=== PATIENT | male | born 1955 | race Caucasian/White ===

== ENCOUNTER 2016-12-09 14:38 | Emergency (ER) | payer BC, OTHER ==
[2016-12-09 15:08] VITALS: BP 132/86
[2016-12-09] MEDS ORDERED: TETANUS/DIPHTHERIA/PERTUSSIS 0.5 ML SYRINGE IM ONE (16:56)
[2016-12-09] MEDS ORDERED: AMOX/CLAV 875 MG/125 MG TABLET PO STA (17:00)
--- NOTE | 2016-12-09 17:08 | ED Physician Documentation ---
History of Present Illness - Stated complaint Stated Complaint: CAT BITE R HAND - Chief complaint Chief Complaint: Wound - Additonal information Additional information: healthy 61 male last tdap 2000 bit by his healthy immunized cat yesterday on R dominent hand and now infected Review of Systems Skin: reports: Bite / sting Immunocompromised: denies: Immunocompromised PD PAST MEDICAL HISTORY - Past Medical History Past Medical History: No Cardiovascular: None Respiratory: None Neuro: None Endocrine/Autoimmune: None GI: Other : None HEENT: None Psych: None Musculoskeletal: None Derm: None Other Past Medical History: Abdi's esophagus - Past Surgical History Ortho: Other - Present Medications Home Medications: Ambulatory Orders Medication Instructions Recorded Confirmed Amox/Clav 875/125 [Augmentin] 1 each PO Q12H #20 tablet 12/09/16 Omeprazole [PriLOSEC] 0 mg DAILY 12/09/16 12/09/16 - Allergies Allergies/Adverse Reactions: Allergies Allergy/AdvReac Type Severity Reaction Status Date / Time No Known Drug Allergies Allergy Verified 12/09/16 14:54 - Social History Does the pt smoke?: No Smoking Status: Never smoker Does the pt drink ETOH?: No Does the pt have substance abuse?: No PD ED PE NORMAL - Vitals Vital signs reviewed: Yes - Extremities Extremities: Other (3 puncture wounds to dorsal radial aspect of R hand with local swelling prox to 2nd/3rd MC heads and strreaking to the AC region, small drop of pus at one pf puncture was cultured but no sig fluctuance to suggest abscess, abke to violet chambers s sig pain so doubt tenosynovitis, MSV intact) Results - Vitals Vitals: Vital Signs - 24 hr 12/09/16 14:49 Temperature 36.2 C L Heart Rate 79 Respiratory 16 Rate Blood Pressure 132/86 H O2 Saturation 98 Oxygen O2 Source Room air Departure - Departure Disposition: 01 Home, Self Care Clinical Impression: Infected cat bite Qualifiers: Encounter type: initial encounter Qualified Code(s): W55.01XA - Bitten by cat, initial encounter Condition: Good Instructions: ED Bite Cat Prescriptions: Amox/Clav 875/125 [Augmentin] 1 each PO Q12H #20 tablet Comments: Wash the hand and apply antibiotic ointment twice a day See you PMD or return to the ER and seem me tomorrow after 8 PM for a recheck ( unless completely better) - sometimes cat bites need IV antibiotics to clear the infection And please have your PMD recheck your blood pressure - it was high today
[2016-12-09] MEDS ORDERED: AMOX/CLAV 875 MG/125 MG TABLET PO ONE (17:12)
== END 2016-12-09 17:21 | disposition home or self-care (01) ==
LOC: ED 14:38
DX: S61.451A Open bite of right hand, initial encounter (principal); L08.9 Local infection of the skin and subcutaneous tissue, unspecified; W55.01XA Bitten by cat, initial encounter
CPT/HCPCS: 87070; 87077; 87181; 87205; 99283; A9270

== ENCOUNTER 2016-12-10 22:04 | Emergency (ER) | payer BC ==
[2016-12-10] MEDS ORDERED: ERTAPENEM 1 GM in SODIUM CHLORIDE 0.9% MINIBAG 100 ML IV STA (22:32)
--- NOTE | 2016-12-10 22:38 | ED Physician Documentation ---
History of Present Illness - Stated complaint Stated Complaint: CAT BITE - Chief complaint Chief Complaint: Wound - Additonal information Additional information: hx from pt bit by his healthy immunied cat 2 days ago seen yesterday for infection txed with augmentin returns for wound check as requested and is worse no fever but inc redness and streaking Review of Systems Constitutional: denies: Fever Skin: reports: Rash, Other (bite) PD PAST MEDICAL HISTORY - Past Medical History Cardiovascular: None Respiratory: None Neuro: None Endocrine/Autoimmune: None GI: Other : None HEENT: None Psych: None Musculoskeletal: None Derm: None - Past Surgical History Ortho: Other - Present Medications Home Medications: Ambulatory Orders Medication Instructions Recorded Confirmed Amox/Clav 875/125 [Augmentin] 1 each PO Q12H #20 tablet 12/09/16 Omeprazole [PriLOSEC] 0 mg DAILY 12/09/16 12/09/16 - Allergies Allergies/Adverse Reactions: Allergies Allergy/AdvReac Type Severity Reaction Status Date / Time No Known Drug Allergies Allergy Verified 12/09/16 14:54 - Social History Does the pt smoke?: No Smoking Status: Never smoker Does the pt drink ETOH?: No Does the pt have substance abuse?: No - Immunizations Immunizations are current?: Yes PD ED PE NORMAL - Vitals Vital signs reviewed: Yes - Extremities Extremities: Other (increased erythema and streaking further up the arm, still no fluctuance to suggest drainable abscess at site of bite, loyda to range wrist and fingers without pain so doubt tendon involvement. MSV intact) Results - Vitals Vitals: Vital Signs - 24 hr 12/10/16 12/11/16 22:16 00:09 Temperature 36.2 C L Heart Rate 79 69 Respiratory 16 14 Rate Blood Pressure 120/68 135/89 H O2 Saturation 97 97 Oxygen O2 Source Room air PD MEDICAL DECISION MAKING - ED course ED course: checked culture and prelim is gram neg - so likely pasteurella or capnocytophagia will give a dose of IV invanz as it is the only 24 hr mono tx IV med for cat bites and then let pt go home to return to ER for a recheck and for another dose unless significantly improved - seems more efficient and hopefully more cost effective than admitting pt Departure - Departure Disposition: 01 Home, Self Care Clinical Impression: Infected cat bite Qualifiers: Encounter type: subsequent encounter Qualified Code(s): W55.01XD - Bitten by cat, subsequent encounter Condition: Good Instructions: ED Bite Cat Follow-Up: Regan Moreland MD [Primary Care Provider] - Comments: The dose of IV antibiotic we gave you will last 24 hr. Keep taking the augmentin as prescribed Tomorrow evening, if the wound looks better just continue taking the augmentin But if the infection is not improving or is getting worse, you will need to come back to the ER again for more IV antibiotics. Return to the ER sooner if you get much worse (fever, shaking chills, severe pain etc) Also your blood pressure is high tonight so please follow up with your PMD o get that rechecked
[2016-12-10] MEDS ORDERED: SODIUM CHLORIDE FLUSH 0.9% 10 ML SYRINGE IVP ONE (22:50)
[2016-12-11 00:41] VITALS: BP 126/72
== END 2016-12-11 00:35 | disposition home or self-care (01) ==
LOC: ED 22:04
DX: S41.15 Open bite of upper arm (principal); L08.9 Local infection of the skin and subcutaneous tissue, unspecified; W55.01XD Bitten by cat, subsequent encounter; R03.0 Elevated blood-pressure reading, without diagnosis of hypertension
CPT/HCPCS: 96365; 99283; J1335

== ENCOUNTER 2020-12-01 14:33 | Emergency (ER) | payer BC ==
[2020-12-01 14:44] VITALS: BP 129/80
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
[2020-12-01] MEDS ORDERED: CETIRIZINE 10 MG TABLET PO STA (15:05)
[2020-12-01] MEDS ORDERED: CHERRY SYRUP 10 ML UDC PO ONE (15:05)
[2020-12-01] MEDS ORDERED: DEXAMETHASONE 10 MG/ML VIAL PO STA (15:05)
[2020-12-01] MEDS ORDERED: cephALEXin 250 MG CAPSULE PO STA (15:05)
== END 2020-12-01 15:35 | disposition home or self-care (01) ==
LOC: ED 14:33
DX: T63.441A Toxic effect of venom of bees, accidental (unintentional), initial encounter (principal); X58.XXXA Exposure to other specified factors, initial encounter; L03.116 Cellulitis of left lower limb
CPT/HCPCS: 99282; 99283; A9270

== ENCOUNTER 2022-01-15 07:34 | Outpatient (CLI) | payer MEDICARE ==
[2022-01-15 14:39] LABS: ALBUMIN 4.5 g/dL (3.2-5.5); ALBUMIN/GLOBULIN RATIO 1.6 (1.0-2.2); ALKALINE PHOSPHATASE 50 IU/L (42-121); ALT ALANINE AMINOTRANSFERASE 28 IU/L (10-60); AST ASPARTATE AMINOTRANSFERASE 28 IU/L (10-42); BILIRUBIN,TOTAL 1.1 mg/dL (0.2-1.0); BUN - BLOOD UREA NITROGEN 25 mg/dL (6-20); CARBON DIOXIDE - CO2 30 mmol/L (21-32); CHLORIDE 103 mmol/L (101-111); CHOLESTEROL 196 mg/dL; GFR - MDRD 75 (>89); GLUCOSE 114 mg/dL (70-100); HDL CHOLESTEROL 65 mg/dL; LDL CHOLESTEROL,CALCULATED 114 mg/dL; LDL/HDL RATIO 1.8 (<3.6); POTASSIUM 4.8 mmol/L (3.5-5.0); SODIUM 139 mmol/L (135-145); TOTAL PROTEIN 7.3 g/dL (6.7-8.2); TRIGLYCERIDES 84 mg/dL; VLDL CHOLESTEROL 17 mg/dL
[2022-01-15 19:54] LABS: ESTIMATED AVERAGE GLUCOSE 114 mg/dL (70-100); HEMOGLOBIN A1c% 5.6 % (4.27-6.07)
== END 2022-01-15 07:35 | disposition home or self-care (01) ==
LOC: LAB.S 07:34
PROVIDERS: ATTEND Family Medicine
DX: Z00.00 Encounter for general adult medical examination without abnormal findings (principal); R73.09 Other abnormal glucose; E78.5 Hyperlipidemia, unspecified
CPT/HCPCS: 36415; 80053; 80061; 83036; 83721; 84153; 85025

== ENCOUNTER 2023-01-21 10:09 | Outpatient (CLI) | payer MEDICARE ==
[2023-01-21 15:18] LABS: HCT - HEMATOCRIT 41.5 % (42.0-52.0); HGB - HEMOGLOBIN 14.1 g/dL (14.0-18.0); MEAN CORPUSCULAR HEMOGLOBIN 31.1 pg (27.0-31.0); MEAN CORPUSCULAR VOLUME 91.6 fL (80.0-94.0); MEAN PLATELET VOLUME 10.8 fL (7.4-11.4); RED BLOOD COUNT 4.53 10^6/uL (4.70-6.10); RED CELL DISTRIBUTION WIDTH 12.2 % (12.0-15.0); WHITE BLOOD COUNT 6.2 x10^3/uL (4.8-10.8)
[2023-01-21 15:48] LABS: ALBUMIN 4.7 g/dL (3.2-5.5); ALBUMIN/GLOBULIN RATIO 1.7 (1.0-2.2); ALKALINE PHOSPHATASE 47 IU/L (42-121); ALT ALANINE AMINOTRANSFERASE 25 IU/L (10-60); AST ASPARTATE AMINOTRANSFERASE 25 IU/L (10-42); BILIRUBIN,TOTAL 1.3 mg/dL (0.2-1.0); BUN - BLOOD UREA NITROGEN 19 mg/dL (6-20); CALCIUM 10.2 mg/dL (8.5-10.3); CARBON DIOXIDE - CO2 29 mmol/L (21-32); CHLORIDE 103 mmol/L (101-111); CHOL/HDL RATIO 2.6 (<5.0); CHOLESTEROL 174 mg/dL; GFR - MDRD 75 (>89); GLUCOSE 110 mg/dL (74-104); HDL CHOLESTEROL 66 mg/dL; LDL CHOLESTEROL,CALCULATED 92 mg/dL; LDL/HDL RATIO 1.4 (<3.6); MAGNESIUM 2.1 mg/dL (1.7-2.3); POTASSIUM 4.6 mmol/L (3.5-4.5); SODIUM 138 mmol/L (135-145); TOTAL PROTEIN 7.4 g/dL (6.4-8.9); TRIGLYCERIDES 82 mg/dL (48-352); VLDL CHOLESTEROL 16 mg/dL
[2023-01-21 20:58] LABS: ESTIMATED AVERAGE GLUCOSE 117 mg/dL (70-100); HEMOGLOBIN A1c% 5.7 % (4.27-6.07)
== END 2023-01-21 10:10 | disposition home or self-care (01) ==
LOC: LAB.S 10:09
PROVIDERS: ATTEND Family Medicine
DX: K22.70 Barrett's esophagus without dysplasia (principal); E78.5 Hyperlipidemia, unspecified; R73.9 Hyperglycemia, unspecified; Z12.5 Encounter for screening for malignant neoplasm of prostate
CPT/HCPCS: 36415; 80053; 80061; 83036; 83735; 85027; G0103; 83721; 84153

== ENCOUNTER 2023-10-02 22:16 | Outpatient (CLI) | payer MEDICARE | END 2023-10-02 23:59 | disposition critical access hospital (66) | LOC: EMS 22:16 | DX: R42 Dizziness and giddiness (principal); R11.0 Nausea; R55 Syncope and collapse; R53.1 Weakness | CPT/HCPCS: A0425; A0427 ==

== ENCOUNTER 2023-10-02 22:55 | Emergency (ER) | payer MEDICARE ==
[2023-10-02 23:13] LABS: BASOPHILS % (AUTO) 0.3 %; EOSINOPHILS # (AUTO) 0.2 10^3/uL (0.0-0.7); EOSINOPHILS % (AUTO) 2.3 %; HCT - HEMATOCRIT 36.3 % (42.0-52.0); HGB - HEMOGLOBIN 12.1 g/dL (14.0-18.0); LYMPHOCYTES # (AUTO) 1.7 10^3/uL (1.5-3.5); LYMPHOCYTES % (AUTO) 25.9 %; MEAN CORPUSCULAR HGB CONC 33.3 g/dL (32.0-36.0); MEAN CORPUSCULAR VOLUME 93.1 fL (80.0-94.0); MEAN PLATELET VOLUME 10.2 fL (7.4-11.4); MONOCYTES # (AUTO) 0.5 10^3/uL (0.0-1.0); MONOCYTES % (AUTO) 7.6 %; NEUTROPHILS # (AUTO) 4.2 10^3/uL (1.5-6.6); NEUTROPHILS % (AUTO) 63.6 %; PLT - PLATELET COUNT 220 10^3/uL (130-450); RED CELL DISTRIBUTION WIDTH 12.1 % (12.0-15.0); WHITE BLOOD COUNT 6.6 x10^3/uL (4.8-10.8)
[2023-10-02 23:27] LABS: ALBUMIN 4.1 g/dL (3.2-5.5); BILIRUBIN,TOTAL 0.5 mg/dL (0.2-1.0); CALCIUM 9.2 mg/dL (8.5-10.3); CREATININE 1.1 mg/dL (0.6-1.3); POTASSIUM 3.8 mmol/L (3.5-4.5); TOTAL PROTEIN 6.2 g/dL (6.4-8.9)
[2023-10-02 23:31] LABS: TROPONIN I HIGH SENSITIVITY 6.1 ng/L (2.3-19.7)
--- NOTE | 2023-10-02 23:32 | ED Physician Documentation ---
PD HPI SYNCOPE - Stated complaint Stated Complaint: NEAR SYNCOPE, DIZZY - Chief complaint Chief Complaint: Neuro - History obtained from History obtained from: Patient - Additional information Additional information: BIBA. HPI from patient. Patient c/o sudden onset lightheadedness, dizziness while he was washing a crab pot this evening. He describes the dizziness as sensation of surroundings spinning around him despite standing still. He experienced nausea but no vomiting. Denies STEVENS, visual changes. Symptoms worse with opening eyes, turning head (to either side). Denies h/o similar symptoms. Denies weakness, numbness. He did fall to ground at one point due to the dizziness but denies any injury and denies LOC. He says he fell due to the dizziness/loss of balance. PD PAST MEDICAL HISTORY - Past Medical History Past Medical History: Yes Cardiovascular: Hypertension Respiratory: None Endocrine/Autoimmune: None GI: Other : None HEENT: None Psych: None Musculoskeletal: None Derm: None - Past Surgical History Past Surgical History: No Ortho: Other - Present Medications Home Medications: Ambulatory Orders Medication Instructions Recorded Confirmed Omeprazole [PriLOSEC] 20 mg DAILY 12/09/16 10/02/23 Lisinopril [Zestril] 40 mg PO DAILY 10/02/23 10/02/23 Meclizine HCl 25 mg PO Q6HR PRN #20 tab 10/03/23 - Allergies Allergies/Adverse Reactions: Allergies Allergy/AdvReac Type Severity Reaction Status Date / Time No Known Drug Allergies Allergy Verified 12/01/20 14:44 - Social History Does the pt smoke?: No Smoking Status: Never smoker Does the pt drink ETOH?: No Does the pt have substance abuse?: No - Immunizations Immunizations are current?: Yes PD ED PE NORMAL - Vitals Vital signs reviewed: Yes - General General: Alert and oriented X 3, Well developed/nourished, Other (answers quickly and appropriately; keeps eyes closed (patient says opening eyes worsens symptoms)) - HEENT HEENT: Atraumatic, PERRL, EOMI, Moist mucous membranes - Neck Neck: Supple, no meningeal sign - Cardiac Cardiac: RRR, No murmur - Respiratory Respiratory: No respiratory distress, Clear bilaterally - Abdomen Abdomen: Soft, Non tender - Neuro Neuro: Alert and oriented X 3, almond roaster 2-12 intact, No motor deficit, No sensory deficit, Normal speech Eye Opening: Spontaneous Motor: Obeys Commands Verbal: Oriented GCS Score: 15 Results - Vitals Vitals: Oxygen O2 Source Room air - EKG (time done) No standard instances EKG releavant findings:: EKG personally interpreted by author of this note. Relevant findings are: Rate: Rate (enter#) (55) Rhythm: NSR [place]: Normal Intervals: Normal [place], QRS normal QRS: Normal Ischemia: Normal ST segments Computer interpretation: Disagree with computer (no ST changes/abnormalities (at most, [address] elevation in V2 but not relevant as an isolated finding (not in two or more contiguous leads))) - Labs Labs: Laboratory Tests 10/02/23 10/02/23 22:55 22:55 WBC 6.6 RBC 3.90 L Hgb 12.1 L Hct 36.3 L MCV 93.1 MCH 31.0 MCHC 33.3 RDW 12.1 Plt Count 220 MPV 10.2 Neut # (Auto) 4.2 Lymph # (Auto) 1.7 [place] # (Auto) 0.5 Eos # (Auto) 0.2 Baso # (Auto) 0.0 Absolute Nucleated RBC 0.00 Nucleated RBC % 0.0 Sodium 140 Potassium 3.8 Chloride 108 Carbon Dioxide 25 Anion Gap 7.0 BUN 22 H Creatinine 1.1 Estimated GFR (MDRD) 67 L Glucose 99 Calcium 9.2 Total Bilirubin 0.5 AST 21 ALT 17 Alkaline Phosphatase 49 Troponin I High Sens 6.1 Total Protein 6.2 L Albumin 4.1 Globulin 2.1 Albumin/Globulin Ratio 2.0 Lipase 29 - Rads (name of study) chest xray Relevant Findings:: Prelim report reviewed, See rad report PD Medical Decision Making - ED course Complexity details: reviewed results, re-evaluated patient, considered differential, d/w patient ED course: Given 1 liter NS IV and 25mg meclizine PO for vertigo. No concerning findings on tests including CBC, ER abdominal panel. EKG and CXR unremarkable. No complaint nor finding of focal/lateralizing neurologic abnormality. On reevaluation after IV fluids and PO meclizine, symptoms have resolved per patient. His eyes are now open and he is able to sit up and wallpaper remover steam around without exacerbation of symptoms. Suspect peripheral vertigo. Diagnosis, prognosis, and return precautions d/w patient. Departure - Departure Disposition: 01 Home, Self Care Clinical Impression: Vertigo Condition: Good Instructions: ED Dizziness UKO, Meclizine, ED Near Syncope Unkn, ED Vertigo Unspecified Prescriptions: Meclizine HCl 25 mg PO Q6HR PRN #20 tab PRN Reason: Vertigo Comments: There were no concerning nor diagnostic findings on tonight's test, including the blood test, EKG, chest x-ray. Dehydration might have played a role (or possibly was the main cause) of your symptoms tonight, but you are also describing a room-spinning component which would be suggestive of an inner ear problem called vertigo. For this, you are given meclizine in the emergency department, which is a medication that can help with vertigo symptoms. It is available [id number], but I am also electronically submitting a prescription for this medication to the [facility] in [place]. Discharge Date/Time: 10/03/23 00:53
[2023-10-02] MEDS: MECLIZINE 12.5 MG TABLET PO STA (23:56)
[2023-10-02] MEDS: SODIUM CHLORIDE 0.9% 1,000 ML IV STA (23:56)
--- NOTE | 2023-10-03 00:23 | XRAY Report ---
PROCEDURE: Chest 1V INDICATIONS: syncopal TECHNIQUE: One view of the chest was acquired. COMPARISON: None. FINDINGS: Surgical changes and devices: None. Lungs and pleura: No pleural effusions or pneumothorax. Lungs are clear. Mediastinum: Mediastinal contours appear normal. Heart size is normal. Bones and chest wall: No suspicious bony lesions. Overlying soft tissues appear unremarkable. IMPRESSION: No acute cardiopulmonary process. No focal consolidation. Reviewed by: Yariel Henry MD on 10/03/2023 12:22 AM PDT Approved by: Yariel Henry MD on 10/03/2023 12:22 AM PDT Station ID: [id number]
[2023-10-03 00:33] VITALS: BP 117/51; O2SAT 100
== END 2023-10-03 00:53 | disposition home or self-care (01) ==
LOC: EDUNIT# → ED 22:55
DX: R42 Dizziness and giddiness (principal)
CPT/HCPCS: 36415; 71045; 80053; 83690; 84484; 85025; 93005; 99284; A9270